=== PATIENT | male | born 1975 | race Caucasian/White ===

== ENCOUNTER 2022-04-08 08:05 | Outpatient (CLI) | payer OTHER, SELFPAY ==
[2022-04-08 12:26] LABS: Chloride* 102 mmol/L (96-114); Potassium* 4.7 mmol/L (3.6-5.1); Sodium* 137 mmol/L (135-149)
[2022-04-08 12:28] LABS: Cholesterol* 131 mg/dL (90-199)
[2022-04-08 12:29] LABS: Blood Urea Nitrogen* 19 mg/dL (5-24); Calcium* 9.7 mg/dL (8.4-10.6); Carbon Dioxide* 28 mmol/L (20-32); Creatinine* 1.2 mg/dL (0.5-1.5); Estimated Glomerular Filt Rate 75 ml/min; Glucose* 124 mg/dL (60-115); Triglycerides* 118 mg/dL (40-149)
[2022-04-08 12:30] LABS: HDL Cholesterol* 35 mg/dL (>=40); LDL Cholesterol Calculated 72 mg/dL (<100)
== END 2022-04-08 08:06 | disposition home or self-care (01) ==
PROVIDERS: PCP Family Medicine; Visit Provider Family Medicine
DX: I10 Essential (primary) hypertension (principal); E78.5 Hyperlipidemia, unspecified
CPT/HCPCS: 80048; 80061

== ENCOUNTER 2023-12-25 08:26 | Outpatient (CLI) | payer OTHER, SELFPAY | END 2023-12-25 08:27 | disposition home or self-care (01) | PROVIDERS: PCP Family Medicine; Visit Provider Family Medicine | DX: E78.5 Hyperlipidemia, unspecified (principal); E13.9 Other specified diabetes mellitus without complications; I10 Essential (primary) hypertension | CPT/HCPCS: 80048; 80061; 84681 ==